=== PATIENT | female | born 1980 | race Caucasian/White ===

== ENCOUNTER 2017-10-24 22:26 | Emergency (ER) | payer SELFPAY ==
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
[2017-10-25] MEDS ORDERED: LEVONORGESTREL 1.5 MG TABLET (1 TAB/ER-USE) PO ONE (00:29)
[2017-10-25] MEDS ORDERED: ONDANSETRON 4 MG TAB.RAPDIS PO ONE (00:29)
[2017-10-25] MEDS ORDERED: METRONIDAZOLE 500 MG TABLET PO ONE ×2 (03:12→03:13)
[2017-10-25] MEDS ORDERED: LIDOCAINE 1% INJ-PF (10 MG/ML) 30 ML SDV INJ ONE (03:12)
[2017-10-25] MEDS ORDERED: CEFTRIAXONE INJ 250 MG VIAL IM ONE (03:12)
[2017-10-25] MEDS ORDERED: ONDANSETRON ODT 4 MG TAB (6 TAB/ER DISP) PO PRN (03:13)
[2017-10-25] MEDS ORDERED: AZITHROMYCIN 250 MG TABLET PO ONE (03:20)
[2017-10-25 03:55] VITALS: BP 151/83
== END 2017-10-25 04:15 | disposition home or self-care (01) ==
LOC: ER 22:26
DX: T76.21XA Adult sexual abuse, suspected, initial encounter (principal); S40.012A Contusion of left shoulder, initial encounter; S40.011A Contusion of right shoulder, initial encounter; S40.022A Contusion of left upper arm, initial encounter; S40.021A Contusion of right upper arm, initial encounter; X58.XXXA Exposure to other specified factors, initial encounter
CPT/HCPCS: 99284; 96372; A9270; S0119; J3490; J0696